=== PATIENT | male | born 2000 | race Caucasian/White ===

== ENCOUNTER → 2020-12-16 | Emergency (ER) | payer BC ==
[~2020-12-16] VITALS: Ht 182.9 cm; Wt 79.5 kg
[2020-12-16 16:14] LABS: HEMOGLOBIN 12.8 g/dl (12.5-16.1); MEAN CELL VOLUME 94 fl (80.0-95.0); MEAN CORPUSCULAR HEMOGLOBIN 34 pg (26.0-32.0); MEAN CORPUSCULAR HGB CONC 36 g/dl (33.0-37.0); MEAN PLATELET VOLUME 10.1 fl (7.4-10.4); PLATELET COUNT 221 K/mm3 (130-400); RED BLOOD COUNT 3.81 M/mm3 (4.20-5.60); REDCELL DISTRIBUTION WIDTH-CV 11.4 % (11.5-14.5)
[2020-12-16 16:19] LABS: HEMATOCRIT 35.9 % (36.0-47.0)
[2020-12-16 16:23] LABS: ALBUMIN 4.4 gm/dL (3.5-5.0); BILIRUBIN,TOTAL 0.3 mg/dL (0.0-1.0); CALCIUM 8.8 mg/dL (8.4-10.2); POTASSIUM 3.3 mmol/L (3.4-5.0); TOTAL PROTEIN 7.4 gm/dL (6.4-8.2)
[2020-12-16 16:37] LABS: LYMPHOCYTE 13 % (20.0-51.0); NEUTROPHILS 80 % (42.0-75.2); PLATELET ESTIMATE NORMAL (NORMAL)
[2020-12-16 17:46] VITALS: BP 102/95; PULSE 62; TEMP 99
[2020-12-16 17:50] VITALS: BP 148/73; PULSE 76; TEMP 98.7
== END ==
LOC: COL.ER 15:35
PROVIDERS: Nurse Practitioner
DX: S42.102A Fracture of unspecified part of scapula, left shoulder, initial encounter for closed fracture (principal); S36.09XA Other injury of spleen, initial encounter; R07.81 Pleurodynia; V86.56XA Driver of dirt bike or motor/cross bike injured in nontraffic accident, initial encounter
CPT/HCPCS: J2405; J3010; J7030; P9016; Q9967